=== PATIENT | male | born 1965 | race Caucasian/White ===

== ENCOUNTER 2019-03-22 11:22 | Emergency (ER) | payer MEDICARE, MEDICAID, SELFPAY ==
[2019-03-22 11:26] VITALS: BP 126/86; PULSE 83; RESP 18; TEMP 36.6; O2SAT 98; BMI 19.5
--- NOTE | 2019-03-22 11:51 | RAD_ITS ---
STUDY: X-RAY CHEST REASON FOR EXAM: Male, 53 years old. Right shoulder blade pain and cough TECHNIQUE: 2 views of the chest were obtained COMPARISON: None. FINDINGS: Right lower lobe infiltrates seen. Subtle infiltrates in the left lower lobe also suspected. No pleural effusion or pneumothorax. Port catheter is seen mild perihilar streaky opacities also identified. Chronic fracture deformity of the right-sided posterior rib involving the 6 as well as the eighth rib. IMPRESSION: Subtle bibasilar infiltrates and mild perihilar congestive changes. Electronically Signed: Quentin Valdez, at 12:30 EDT Tel , Service support , RAD/Chest PA and Lateral
--- NOTE | 2019-03-22 11:52 | ED.VISSUMM ---
- ER Visit Summary Date of Service: 03/22/19 Chief Complaint: Shortness of breath History of Present Illness: The patient is a 53 M who presents with shortness of breath that has been getting worse over the past week. Patient states she has sharp pain in his right upper chest and his right upper thoracic area under his shoulder blade. Patient describes the pain is sharp. Patient states the pain in breathing is worse when he is exposed to cold air and improves when he goes into warm air. Patient states he has been having a cough with a white and good sputum. Patient also admits to some ear pain and rhinorrhea. Patient admits to subjective chills but denies any fevers. Patient does admit to some nausea but denies any vomiting. Physical Examination: Vital signs are stable. Patient is afebrile. Patient is in no acute distress. Oral mucosa is pink and moist. Neck is supple. Trachea is midline. There is no JVD noted. Heart was regular rate and rhythm. Lungs are clear and equal bilaterally. Abdomen is soft. Bowel sounds are normal. There is no tenderness. There is no guarding noted. Cranial nerves II through XII are intact. There are no focal motor or sensory deficits noted. Test Results: PA and lateral chest x-ray was obtained. There are bibasilar infiltrates, worse on the right. These were interpreted by the radiologist and reviewed by myself. Emergency Department Course and Treatment: Patient was initially ordered Zithromax however, patient states he is intolerant to this. Patient was given a prescription for Levaquin. Patient was instructed to follow-up with his primary care physician in 3 to 5 days. Patient understood and was agreeable with the plan. All questions were answered. Disposition: Discharge home Impression: Community-acquired pneumonia This note was generated with [employer] dictation software. It may contain incorrect words, spelling, and punctuation that were not noted in review of the chart prior to signing ED Disposition - Plan for ED Patient: Disposition: Home or Assisted Living Diagnosis: Community acquired pneumonia Instructions: PNEUMONIA (Adult) Prescriptions: Levofloxacin [Levaquin] 750 mg PO DAILY #7 tab Prescription Printed Referrals: NOT,DEFINED [NON-STAFF] -
[2019-03-22 13:49] VITALS: BP 105/67; PULSE 88; RESP 14; O2SAT 98
== END 2019-03-22 13:50 | disposition home or self-care (01) ==
PROVIDERS: Emergency Provider Emergency Medicine
DX: J18.9 Pneumonia, unspecified organism (principal); F17.200 Nicotine dependence, unspecified, uncomplicated
CPT/HCPCS: 71046; 99282